=== PATIENT | male | born 1955 | race Caucasian/White ===

== ENCOUNTER 2017-09-03 11:55 | Inpatient (IN) | payer MEDICARE, BC ==
[~2017-09-03] VITALS: Ht 172.7 cm; Wt 81.0 kg
[~2017-09-03 11:55] MED LIST: APIX5TAB3 PO; ASPI-1053 PO; ATOR20TA PO; CHLO25TA2 PO; CYAN1TAB41 PO; DOXA4TAB3 PO; FLO0.4C PO; GARL1000 PO; HCTZ25T PO; HYDR25TA4 PO; LEDI1TAB PO; MILK500C PO; NIFE60TA2 PO; NIFE90TA2 PO; OMEG300C3 PO; POTA2TAB17 PO; TURM500C7 PO; VALS320T16 PO; VITA1TAB20 PO; [UNRECOGNIZED DRUG - CODE] PO; [UNRECOGNIZED DRUG - OTHER] PO
[2017-09-03 12:07] LABS: BASOPHILS % (AUTO) 0.3 % (0-1); EOSINOPHILS # (AUTO) 0.1 X10'3 (0-0.9); EOSINOPHILS % (AUTO) 0.9 % (0-6); HEMATOCRIT 40.4 % (42.0-52.0); HEMOGLOBIN 13.9 g/dl (14.0-17.9); LYMPHOCYTES # (AUTO) 0.8 X10'3 (1.1-4.8); LYMPHOCYTES % (AUTO) 12.1 % (21-51); MEAN CORPUSCULAR HGB CONC 34.4 % (33.0-36.5); MEAN CORPUSCULAR VOLUME 98.9 FL (78-98); MEAN PLATELET VOLUME 9.1 FL (7.4-10.4); MONOCYTES # (AUTO) 0.3 X10'3 (0-0.9); MONOCYTES % (AUTO) 4.5 % (2-12); NEUTROPHILS # (AUTO) 5.8 X10'3 (1.8-7.7); NEUTROPHILS % (AUTO) 82.2 % (42-75); PLATELET COUNT 185 X10'3 (140-440); RED BLOOD COUNT 4.08 X10'6 (4.70-6.10)
[2017-09-03 12:24] LABS: D-DIMER 0.48 MG/L FEU (0-0.50); INR 1.3 INR; PARTIAL THROMBOPLASTIN TIME 26 SECONDS (22-32); PROTHROMBIN TIME 13.3 SECONDS (9.0-12.0)
[2017-09-03 12:28] LABS: ALANINE AMINOTRANSFERASE 30 U/L (12-78); ALBUMIN/GLOBULIN RATIO 0.8 (1.1-1.5); ALKALINE PHOSPHATASE 68 IU/L (46-116); ANION GAP 11 (8-16); ASPARTATE AMINO TRANSFERASE 22 U/L (10-37); BILIRUBIN,TOTAL 0.5 MG/DL (0.1-1.0); BLOOD UREA NITROGEN 20 MG/DL (7-18); BUN/CREATININE RATIO 23.3 (5.4-32.0); CALCIUM 8.5 MG/DL (8.5-10.1); CHLORIDE 106 MMOL/L (99-107); CREATININE 0.86 MG/DL (0.60-1.10); GLUCOSE 137 MG/DL (70-104); SODIUM 146 MMOL/L (135-145); TOTAL CARBON DIOXIDE 29.4 MMOL/L (24-32); TOTAL PROTEIN 6.6 G/DL (6.4-8.2); eGFR 90 ML/MIN
[2017-09-03 12:30] LABS: POTASSIUM 2.6 MMOL/L (3.5-5.1)
[2017-09-03] MEDS ORDERED: DOXA4TAB3 PO (12:30)
[2017-09-03] MEDS ORDERED: POTA20TA10 PO (12:30)
[2017-09-03] MEDS ORDERED: APIX5TAB3 PO (12:30)
[2017-09-03] MEDS ORDERED: NEBI10TA2 PO (12:30)
[2017-09-03] MEDS ORDERED: VALS160T2 PO (12:30)
[2017-09-03] MEDS ORDERED: CHLO25TA2 PO (12:30)
[2017-09-03] MEDS ORDERED: ATOR20TA PO (12:30)
[2017-09-03 12:45] LABS: MAGNESIUM 1.9 MG/DL (1.5-2.4)
[2017-09-03] MEDS ORDERED: potassium Cl 20 mEq SR tablet PO ONE (13:10)
[2017-09-03] MEDS ORDERED: nitroGLYCERIN 0.4mg SUBLingual tab SL PRN (13:35)
[2017-09-03] MEDS ORDERED: morphine 4 MG/ML inj SYRINge IV PRN ×2 (13:35)
[2017-09-03] MEDS ORDERED: acetaminophen 325mg tablet PO PRN ×3 (13:35→13:51)
[2017-09-03] MEDS: potassium 10mEq/100ml NS w/LIDOcaine (10mg/bag) IV SCH ×2 (14:04→15:05)
[2017-09-03 15:19] LABS: CHOL/HDL RATIO 2.3 (0.00-4.99); CHOLESTEROL 121 MG/DL (0-200); HDL CHOLESTEROL 52 MG/DL (35-60); LDL CHOLESTEROL 57 MG/DL (50-100); TRIGLYCERIDES 59 MG/DL (20-135)
[2017-09-03] MEDS ORDERED: potassium Cl 20 mEq SR tablet PO PRN ×3 (17:05→21:00)
[2017-09-03] MEDS ORDERED: potassium Cl 40MEQ/NS 500ml 500 ML IV PRN ×4 (17:05→21:00)
[2017-09-03 17:43] VITALS: BP 132/98
[2017-09-03 18:00] VITALS: BP 155/90
[2017-09-03] MEDS: tamsulosin 0.4mg capsule PO SCH (20:00)
[2017-09-03] MEDS: levetiracetam 250mg tablet PO SCH (20:00)
[2017-09-03] MEDS: doxazosin mesylate 2mg tablet PO SCH (20:10)
[2017-09-03] MEDS: apixaban 5mg tablet PO SCH (20:10)
[2017-09-03] MEDS: potassium Cl 20 mEq SR tablet PO SCH (20:16)
[2017-09-03] MEDS: atorvastatin 20mg tablet PO SCH ×2 (20:16→20:20)
[2017-09-03] MEDS: potassium Cl 20 mEq SR tablet PO PRN (21:33)
[2017-09-03 22:00] VITALS: BP 135/73
[2017-09-04 02:00] VITALS: BP 143/90
[2017-09-04] MEDS: potassium Cl 20 mEq SR tablet PO PRN ×2 (02:11→05:26)
[2017-09-04 05:31] LABS: BASOPHILS % (AUTO) 0.2 % (0-1); EOSINOPHILS # (AUTO) 0.1 X10'3 (0-0.9); EOSINOPHILS % (AUTO) 1.6 % (0-6); HEMATOCRIT 37.7 % (42.0-52.0); HEMOGLOBIN 12.7 g/dl (14.0-17.9); LYMPHOCYTES # (AUTO) 1.6 X10'3 (1.1-4.8); LYMPHOCYTES % (AUTO) 25.1 % (21-51); MEAN CORPUSCULAR HEMOGLOBIN 33.8 PG (27.0-31.0); MEAN CORPUSCULAR HGB CONC 33.8 % (33.0-36.5); MEAN CORPUSCULAR VOLUME 100.1 FL (78-98); MEAN PLATELET VOLUME 9.2 FL (7.4-10.4); MONOCYTES # (AUTO) 0.7 X10'3 (0-0.9); MONOCYTES % (AUTO) 11.1 % (2-12); NEUTROPHILS # (AUTO) 4.1 X10'3 (1.8-7.7); PLATELET COUNT 163 X10'3 (140-440); RED BLOOD COUNT 3.77 X10'6 (4.70-6.10); WHITE BLOOD COUNT 6.6 X10'3 (4.5-11.0)
[2017-09-04 05:47] LABS: ALANINE AMINOTRANSFERASE 28 U/L (12-78); ALBUMIN 2.8 G/DL (3.4-5.0); ALBUMIN/GLOBULIN RATIO 0.8 (1.1-1.5); ALKALINE PHOSPHATASE 63 IU/L (46-116); ANION GAP 6 (8-16); ASPARTATE AMINO TRANSFERASE 20 U/L (10-37); BILIRUBIN,TOTAL 0.4 MG/DL (0.1-1.0); BLOOD UREA NITROGEN 22 MG/DL (7-18); BUN/CREATININE RATIO 21.8 (5.4-32.0); CALCIUM 8.2 MG/DL (8.5-10.1); CHLORIDE 107 MMOL/L (99-107); CREATININE 1.01 MG/DL (0.60-1.10); GLUCOSE 119 MG/DL (70-104); MAGNESIUM 1.9 MG/DL (1.5-2.4); PHOSPHORUS 3.1 MG/DL (2.3-4.5); POTASSIUM 3.2 MMOL/L (3.5-5.1); SODIUM 145 MMOL/L (135-145); TOTAL CARBON DIOXIDE 31.6 MMOL/L (24-32); TOTAL PROTEIN 6.2 G/DL (6.4-8.2); eGFR 74 ML/MIN
[2017-09-04 06:00] VITALS: BP 145/96
[2017-09-04] MEDS: doxazosin mesylate 2mg tablet PO SCH (07:56)
[2017-09-04] MEDS: levetiracetam 250mg tablet PO SCH (07:56)
[2017-09-04] MEDS: apixaban 5mg tablet PO SCH (07:57)
[2017-09-04] MEDS: tamsulosin 0.4mg capsule PO SCH (07:57)
[2017-09-04] MEDS: potassium Cl 20 mEq SR tablet PO SCH ×2 (07:57→13:54)
[2017-09-04] MEDS ORDERED: aspirin 81mg tab.chew PO SCH (08:00)
[2017-09-04] MEDS ORDERED: NIFEdipine XL 30mg tablet PO SCH (08:00)
[2017-09-04] MEDS ORDERED: chlorthalidone 25mg tablet PO SCH (08:00)
[2017-09-04] MEDS ORDERED: non-formulary drug (Garlic 1 CAP) PO SCH (08:00)
[2017-09-04] MEDS ORDERED: SOFOSBUVIR PO SCH (08:00)
[2017-09-04] MEDS ORDERED: LEDIPASVIR PO SCH (08:00)
[2017-09-04] MEDS ORDERED: cyanocobalamin 500mcg tablet PO SCH (08:00)
[2017-09-04] MEDS ORDERED: non-formulary drug (Doxazosin Mesylate 1 TAB) PO SCH (08:00)
[2017-09-04] MEDS ORDERED: vitamin B comp w/Vit. C tab 1 TAB TABLET PO SCH (08:00)
[2017-09-04] MEDS ORDERED: HYDROchlorothiazide 25mg tablet PO SCH (08:00)
[2017-09-04 11:00] VITALS: BP 130/99
[2017-09-04] MEDS ORDERED: LEVE250T PO (13:04)
== END 2017-09-04 14:08 | disposition home or self-care (01) | DRG 312 ==
LOC: ER 11:55 → ED HOLD 13:32 → EDBEDREQ 16:16 → PCU 3S 17:50
PROVIDERS: ADMIT Internal Medicine; ATTEND Internal Medicine
DX: R55 Syncope and collapse (principal); I48.91 Unspecified atrial fibrillation; W18.39XA Other fall on same level, initial encounter; E87.6 Hypokalemia; B19.20 Unspecified viral hepatitis C without hepatic coma; R74.8 Abnormal levels of other serum enzymes; I10 Essential (primary) hypertension; I25.10 Atherosclerotic heart disease of native coronary artery without angina pectoris; F12.90 Cannabis use, unspecified, uncomplicated; F17.210 Nicotine dependence, cigarettes, uncomplicated; Z79.01 Long term (current) use of anticoagulants; Z79.899 Other long term (current) drug therapy; Z79.82 Long term (current) use of aspirin; Z86.73 Personal history of transient ischemic attack (TIA), and cerebral infarction without residual deficits; Z80.9 Family history of malignant neoplasm, unspecified; Y93.89 Activity, other specified; Y92.89 Other specified places as the place of occurrence of the external cause; Y99.8 Other external cause status
CPT/HCPCS: 36415; 70551; 71045; 80053; 80061; 82948; 83735; 83880; 84100; 84132; 84484; 85025; 85379; 85610; 85730; 87502; 87503; 93005; 99285; J3480; J7030

== ENCOUNTER 2017-09-09 10:18 | Inpatient (IN) | payer MEDICARE, BC ==
[~2017-09-09] VITALS: Ht 167.6 cm; Wt 85.9 kg
[~2017-09-09 10:18] MED LIST changes: -HCTZ25T PO; -HYDR25TA4 PO; +LEVE250T PO; +NEBI10TA2 PO; +POTA20TA10 PO; +VALS160T2 PO
[2017-09-09 10:49] LABS: BASOPHILS % (AUTO) 0.4 % (0-1); EOSINOPHILS # (AUTO) 0.1 X10'3 (0-0.9); EOSINOPHILS % (AUTO) 1.6 % (0-6); HEMATOCRIT 40.1 % (42.0-52.0); HEMOGLOBIN 13.8 g/dl (14.0-17.9); LYMPHOCYTES # (AUTO) 0.9 X10'3 (1.1-4.8); LYMPHOCYTES % (AUTO) 14.2 % (21-51); MEAN CORPUSCULAR HEMOGLOBIN 34.2 PG (27.0-31.0); MEAN CORPUSCULAR HGB CONC 34.4 % (33.0-36.5); MEAN CORPUSCULAR VOLUME 99.7 FL (78-98); MEAN PLATELET VOLUME 9.7 FL (7.4-10.4); MONOCYTES # (AUTO) 0.3 X10'3 (0-0.9); MONOCYTES % (AUTO) 5.7 % (2-12); NEUTROPHILS # (AUTO) 4.8 X10'3 (1.8-7.7); NEUTROPHILS % (AUTO) 78.1 % (42-75); PLATELET COUNT 180 X10'3 (140-440); RED BLOOD COUNT 4.03 X10'6 (4.70-6.10); WHITE BLOOD COUNT 6.1 X10'3 (4.5-11.0)
[2017-09-09 11:00] LABS: INR 1.3 INR; PARTIAL THROMBOPLASTIN TIME 26 SECONDS (22-32); PROTHROMBIN TIME 13.4 SECONDS (9.0-12.0)
[2017-09-09 11:04] LABS: ALANINE AMINOTRANSFERASE 33 U/L (12-78); ALBUMIN 3.1 G/DL (3.4-5.0); ALBUMIN/GLOBULIN RATIO 0.8 (1.1-1.5); ALKALINE PHOSPHATASE 75 IU/L (46-116); ANION GAP 6 (8-16); ASPARTATE AMINO TRANSFERASE 22 U/L (10-37); BILIRUBIN,TOTAL 0.6 MG/DL (0.1-1.0); BLOOD UREA NITROGEN 15 MG/DL (7-18); BUN/CREATININE RATIO 19.7 (5.4-32.0); CALCIUM 8.6 MG/DL (8.5-10.1); CHLORIDE 103 MMOL/L (99-107); CREATININE 0.76 MG/DL (0.60-1.10); GLUCOSE 158 MG/DL (70-104); SODIUM 143 MMOL/L (135-145); TOTAL CARBON DIOXIDE 33.7 MMOL/L (24-32); TOTAL PROTEIN 6.9 G/DL (6.4-8.2); eGFR > 90 ML/MIN
[2017-09-09 11:08] LABS: POTASSIUM 2.8 MMOL/L (3.5-5.1)
[2017-09-09] MEDS ORDERED: potassium Cl 20 mEq SR tablet PO STA (11:10)
[2017-09-09] MEDS: potassium 10mEq/100ml NS w/LIDOcaine (10mg/bag) IV SCH ×2 (11:20→12:42)
[2017-09-09] MEDS ORDERED: magnesium 2GM in 50ml NS 50 ML IV PRN (12:25)
[2017-09-09] MEDS ORDERED: ondansetron/PF 4mg/2ml inj IV PRN (12:25)
[2017-09-09] MEDS ORDERED: magnesium hydroxide 30ml (MOM) UD suspension PO PRN (12:25)
[2017-09-09] MEDS ORDERED: acetaminophen 325mg tablet PO PRN (12:25)
[2017-09-09] MEDS ORDERED: potassium Cl 40MEQ/NS 500ml 500 ML IV PRN ×2 (12:25)
[2017-09-09] MEDS ORDERED: mag hydrox/Alum hydrox/simeth 30ml oral suspension PO PRN (12:25)
[2017-09-09] MEDS ORDERED: bisacodyl 10mg suppository rectal RC PRN (12:25)
[2017-09-09] MEDS ORDERED: potassium Cl 20 mEq SR tablet PO PRN (12:25)
[2017-09-09] MEDS ORDERED: magnesium 4gm in 100ml NS 100 ML IV PRN (12:25)
[2017-09-09] MEDS: amiodarone 200mg tablet PO SCH ×2 (13:04→21:52)
[2017-09-09] MEDS: potassium Cl 20 mEq SR tablet PO SCH ×2 (13:04→21:52)
[2017-09-09 13:45] LABS: CLARITY,URINE CLEAR (Clear); COLOR,URINE YELLOW (Yellow); GLUCOSE, URINE NEGATIVE (Neg); KETONES,URINE NEGATIVE (Neg); LEUKOCYTE ESTERASE ,URINE NEGATIVE (Neg); NITRITES, URINE NEGATIVE (Neg); OCCULT BLOOD,URINE TRACE-INTACT (Neg); PH,URINE 7.5 (4.8-8.0); PROTEIN,URINE 100 mg/dl (Neg)
[2017-09-09 13:50] LABS: UA COLLECTION TYPE CLN CATCH MIDSTREAM
[2017-09-09 13:51] LABS: BACTERIA,URINE NONE SEEN /HPF (Neg); MUCUS STRANDS NONE SEEN /LPF (Neg); RBC,URINE 0-2 /HPF (0-2); SQUAMOUS EPITHELIAL CELL,UR FEW /LPF (FEW); WBC,URINE NONE SEEN /HPF (0-4)
[2017-09-09 17:19] LABS: ALBUMIN 3.1 G/DL (3.4-5.0); ANION GAP 7 (8-16); BLOOD UREA NITROGEN 17 MG/DL (7-18); BUN/CREATININE RATIO 19.5 (5.4-32.0); CALCIUM 8.5 MG/DL (8.5-10.1); CHLORIDE 105 MMOL/L (99-107); CREATININE 0.87 MG/DL (0.60-1.10); GLUCOSE 133 MG/DL (70-104); POTASSIUM 3.3 MMOL/L (3.5-5.1); SODIUM 143 MMOL/L (135-145); TOTAL CARBON DIOXIDE 31.3 MMOL/L (24-32); eGFR 88 ML/MIN
[2017-09-09 19:30] VITALS: BP 156/94
[2017-09-09] MEDS: furosemide 20 MG/2 ML vial IV SCH (21:51)
[2017-09-09] MEDS: atorvastatin 20mg tablet PO SCH (21:52)
[2017-09-09] MEDS: tamsulosin 0.4mg capsule PO SCH (21:52)
[2017-09-09] MEDS: docusate sod 100mg capsule PO SCH (21:53)
[2017-09-09 22:00] VITALS: BP_SYST 137; BP_SYST 145; BP_SYST 147; BP_DIAS 95; BP_DIAS 98
[2017-09-09 23:34] LABS: POTASSIUM 3.1 MMOL/L (3.5-5.1)
[2017-09-10] VITALS (16 sets, daily range): BP systolic 115–151; BP diastolic 74–101
[2017-09-10] MEDS: potassium Cl 20 mEq SR tablet PO PRN ×2 (04:01→14:13)
[2017-09-10 06:11] LABS: BASOPHILS % (AUTO) 0.4 % (0-1); EOSINOPHILS # (AUTO) 0.1 X10'3 (0-0.9); HEMATOCRIT 39.5 % (42.0-52.0); HEMOGLOBIN 13.2 g/dl (14.0-17.9); LYMPHOCYTES # (AUTO) 1.6 X10'3 (1.1-4.8); LYMPHOCYTES % (AUTO) 25.4 % (21-51); MEAN CORPUSCULAR HEMOGLOBIN 33.8 PG (27.0-31.0); MEAN CORPUSCULAR HGB CONC 33.4 % (33.0-36.5); MEAN CORPUSCULAR VOLUME 101.4 FL (78-98); MEAN PLATELET VOLUME 10.1 FL (7.4-10.4); MONOCYTES # (AUTO) 0.7 X10'3 (0-0.9); MONOCYTES % (AUTO) 11.5 % (2-12); NEUTROPHILS # (AUTO) 3.9 X10'3 (1.8-7.7); NEUTROPHILS % (AUTO) 60.7 % (42-75); PLATELET COUNT 164 X10'3 (140-440); RED BLOOD COUNT 3.89 X10'6 (4.70-6.10); RED CELL DISTRIBUTION WIDTH 15.9 % (11.5-14.5); WHITE BLOOD COUNT 6.4 X10'3 (4.5-11.0)
[2017-09-10 06:59] LABS: ALANINE AMINOTRANSFERASE 29 U/L (12-78); ALBUMIN 2.9 G/DL (3.4-5.0); ALBUMIN/GLOBULIN RATIO 0.9 (1.1-1.5); ALKALINE PHOSPHATASE 65 IU/L (46-116); ANION GAP 7 (8-16); ASPARTATE AMINO TRANSFERASE 19 U/L (10-37); BILIRUBIN,TOTAL 0.6 MG/DL (0.1-1.0); BLOOD UREA NITROGEN 19 MG/DL (7-18); BUN/CREATININE RATIO 21.3 (5.4-32.0); CALCIUM 8.5 MG/DL (8.5-10.1); CHLORIDE 105 MMOL/L (99-107); CREATININE 0.89 MG/DL (0.60-1.10); GLUCOSE 102 MG/DL (70-104); MAGNESIUM 1.9 MG/DL (1.5-2.4); POTASSIUM 3.2 MMOL/L (3.5-5.1); SODIUM 145 MMOL/L (135-145); TOTAL CARBON DIOXIDE 32.6 MMOL/L (24-32); TOTAL PROTEIN 6.3 G/DL (6.4-8.2); eGFR 86 ML/MIN
[2017-09-10] MEDS: doxazosin mesylate 2mg tablet PO SCH (07:41)
[2017-09-10] MEDS: aspirin 81mg tab.chew PO SCH (07:42)
[2017-09-10] MEDS: tamsulosin 0.4mg capsule PO SCH ×2 (07:42→20:12)
[2017-09-10] MEDS: docusate sod 100mg capsule PO SCH ×2 (07:42→20:13)
[2017-09-10] MEDS: magnesium Cl slow-release 64mg tablet PO PRN ×2 (07:42→20:12)
[2017-09-10] MEDS: potassium Cl 20 mEq SR tablet PO SCH ×3 (07:42→20:12)
[2017-09-10] MEDS: enoxaparin 40mg/0.4ml syringe SUBCUT SCH (07:43)
[2017-09-10] MEDS: amiodarone 200mg tablet PO SCH (07:43)
[2017-09-10] MEDS: cyanocobalamin 500mcg tablet PO SCH (07:43)
[2017-09-10] MEDS: OMEGA-3/DHA/EPA/FISH OIL 1 EACH CAPSULE.DR PO SCH (07:44)
[2017-09-10] MEDS: furosemide 20 MG/2 ML vial IV SCH ×2 (07:44→20:12)
[2017-09-10] MEDS: K and/or MAG REPLACEMENT MC SCH (08:00)
[2017-09-10] MEDS ORDERED: amiodarone 150mg/dext, iso-os 100 ML IV ONE (08:10)
[2017-09-10] MEDS: amiodarone/D5 360MG/200ML BAG 200 ML IV PRN ×2 (11:14→17:20)
[2017-09-10 13:08] LABS: MAGNESIUM 1.9 MG/DL (1.5-2.4); POTASSIUM 3.3 MMOL/L (3.5-5.1)
[2017-09-10] MEDS ORDERED: magnesium 1 gm/2ml inj. 1 GM in normal saline 50ml IV soln 48 ML IV ONE (14:20)
[2017-09-10] MEDS ORDERED: Potassium Cl inj 20 MEQ in normal saline 250ml IV soln 240 ML IV ONE (14:25)
[2017-09-10] MEDS: atorvastatin 20mg tablet PO SCH (20:12)
[2017-09-11] VITALS (21 sets, daily range): BP systolic 109–174; BP diastolic 47–107
[2017-09-11] MEDS: enoxaparin 40mg/0.4ml syringe SUBCUT SCH (06:43)
[2017-09-11 07:19] LABS: ALANINE AMINOTRANSFERASE 31 U/L (12-78); ALBUMIN 3.1 G/DL (3.4-5.0); ALBUMIN/GLOBULIN RATIO 0.9 (1.1-1.5); ALKALINE PHOSPHATASE 69 IU/L (46-116); ANION GAP 11 (8-16); ASPARTATE AMINO TRANSFERASE 18 U/L (10-37); BILIRUBIN,TOTAL 0.4 MG/DL (0.1-1.0); BLOOD UREA NITROGEN 25 MG/DL (7-18); BUN/CREATININE RATIO 25.8 (5.4-32.0); CALCIUM 8.6 MG/DL (8.5-10.1); CHLORIDE 104 MMOL/L (99-107); CREATININE 0.97 MG/DL (0.60-1.10); GLUCOSE 112 MG/DL (70-104); MAGNESIUM 2.1 MG/DL (1.5-2.4); POTASSIUM 3.7 MMOL/L (3.5-5.1); SODIUM 144 MMOL/L (135-145); TOTAL PROTEIN 6.7 G/DL (6.4-8.2); eGFR 78 ML/MIN
[2017-09-11] MEDS: OMEGA-3/DHA/EPA/FISH OIL 1 EACH CAPSULE.DR PO SCH (07:34)
[2017-09-11] MEDS: doxazosin mesylate 2mg tablet PO SCH (07:34)
[2017-09-11] MEDS: tamsulosin 0.4mg capsule PO SCH ×2 (07:36→20:10)
[2017-09-11] MEDS: potassium Cl 20 mEq SR tablet PO SCH ×3 (07:36→20:09)
[2017-09-11] MEDS: cyanocobalamin 500mcg tablet PO SCH (07:37)
[2017-09-11] MEDS: docusate sod 100mg capsule PO SCH ×2 (07:37→20:10)
[2017-09-11] MEDS: aspirin 81mg tab.chew PO SCH (07:37)
[2017-09-11] MEDS: furosemide 20 MG/2 ML vial IV SCH ×2 (07:38→20:09)
[2017-09-11] MEDS: K and/or MAG REPLACEMENT MC SCH (07:48)
[2017-09-11] MEDS: amiodarone/D5 360MG/200ML BAG 200 ML IV PRN ×2 (07:53→20:12)
[2017-09-11] MEDS ORDERED: iohexol 350MG/ML 100ml bottle IV ONE (08:01)
[2017-09-11] MEDS ORDERED: LIDOcaine 1%/PF (10mg/ml) 5ml vial ONE (08:01)
[2017-09-11] MEDS ORDERED: normal saline 1000ml 1,000 ML IV SCH (09:16)
[2017-09-11] MEDS ORDERED: nitroGLYCERIN 0.4mg SUBLingual tab SL PRN (09:20)
[2017-09-11] MEDS ORDERED: proCHLORperazine 10 MG/2 ml inj IV PRN (09:20)
[2017-09-11] MEDS ORDERED: OXAZEpam 15mg capsule PO PRN (09:20)
[2017-09-11] MEDS: HYDROcodone/acetaminophen 5mg/325mg tablet PO PRN (15:35)
[2017-09-11] MEDS: atorvastatin 20mg tablet PO SCH (20:10)
[2017-09-11] MEDS: HYDROcodone/acetaminophen 10/325mg tab PO PRN (20:16)
[2017-09-12] VITALS (14 sets, daily range): BP systolic 123–186; BP diastolic 56–112
[2017-09-12 05:43] LABS: ALANINE AMINOTRANSFERASE 25 U/L (12-78); ALBUMIN/GLOBULIN RATIO 0.9 (1.1-1.5); ALKALINE PHOSPHATASE 65 IU/L (46-116); ANION GAP 7 (8-16); ASPARTATE AMINO TRANSFERASE 20 U/L (10-37); BILIRUBIN,TOTAL 0.5 MG/DL (0.1-1.0); BLOOD UREA NITROGEN 25 MG/DL (7-18); CALCIUM 8.2 MG/DL (8.5-10.1); CHLORIDE 106 MMOL/L (99-107); CREATININE 0.96 MG/DL (0.60-1.10); GLUCOSE 109 MG/DL (70-104); MAGNESIUM 1.9 MG/DL (1.5-2.4); POTASSIUM 3.8 MMOL/L (3.5-5.1); SODIUM 146 MMOL/L (135-145); TOTAL CARBON DIOXIDE 32.7 MMOL/L (24-32); TOTAL PROTEIN 6.5 G/DL (6.4-8.2); eGFR 79 ML/MIN
[2017-09-12] MEDS ORDERED: LIDOcaine 1.5% w/epinephrine 1:200,000 5ml ampul ONE ×2 (06:22→06:30)
[2017-09-12] MEDS ORDERED: ceFAZolin 1000mg inj ONE (06:22)
[2017-09-12] MEDS ORDERED: fentaNYL/PF 50MCG/1 ML 2ML syringe ONE (06:36)
[2017-09-12] MEDS: potassium Cl 20 mEq SR tablet PO SCH ×3 (07:32→21:32)
[2017-09-12] MEDS: cyanocobalamin 500mcg tablet PO SCH (07:32)
[2017-09-12] MEDS: aspirin 81mg tab.chew PO SCH (07:32)
[2017-09-12] MEDS: doxazosin mesylate 2mg tablet PO SCH (07:32)
[2017-09-12] MEDS: tamsulosin 0.4mg capsule PO SCH ×2 (07:33→21:30)
[2017-09-12] MEDS: HYDROcodone/acetaminophen 10/325mg tab PO PRN ×4 (07:33→23:20)
[2017-09-12] MEDS: furosemide 20 MG/2 ML vial IV SCH ×2 (07:34→21:33)
[2017-09-12] MEDS: docusate sod 100mg capsule PO SCH ×2 (07:34→21:38)
[2017-09-12] MEDS: OMEGA-3/DHA/EPA/FISH OIL 1 EACH CAPSULE.DR PO SCH (07:47)
[2017-09-12] MEDS: amiodarone 200mg tablet PO SCH ×2 (07:47→21:29)
[2017-09-12] MEDS: carvedilol 6.25mg tablet PO SCH ×2 (07:47→21:31)
[2017-09-12] MEDS: spironolactone 25 MG tablet PO SCH (07:47)
[2017-09-12] MEDS: K and/or MAG REPLACEMENT MC SCH (08:00)
[2017-09-12] MEDS ORDERED: LORazepam 1 MG tablet PO PRN (09:10)
[2017-09-12] MEDS: normal saline 1000ml 400 ML IV SCH ×3 (09:15→15:57)
[2017-09-12] MEDS: ceFAZolin 1GM/D5W- ADD-VANTAGE 50 ML IV SCH ×2 (15:52→23:20)
[2017-09-12] MEDS: HYDROcodone/acetaminophen 5mg/325mg tablet PO PRN (15:55)
[2017-09-12] MEDS: atorvastatin 20mg tablet PO SCH (21:30)
[2017-09-13 03:00] VITALS: BP 155/93
[2017-09-13] MEDS: HYDROcodone/acetaminophen 10/325mg tab PO PRN ×2 (04:59→10:05)
[2017-09-13 05:48] LABS: ALANINE AMINOTRANSFERASE 24 U/L (12-78); ALBUMIN 3.2 G/DL (3.4-5.0); ALBUMIN/GLOBULIN RATIO 0.9 (1.1-1.5); ALKALINE PHOSPHATASE 75 IU/L (46-116); ANION GAP 7 (8-16); ASPARTATE AMINO TRANSFERASE 21 U/L (10-37); BILIRUBIN,TOTAL 0.8 MG/DL (0.1-1.0); BLOOD UREA NITROGEN 25 MG/DL (7-18); CALCIUM 8.6 MG/DL (8.5-10.1); CHLORIDE 104 MMOL/L (99-107); CREATININE 0.96 MG/DL (0.60-1.10); GLUCOSE 115 MG/DL (70-104); MAGNESIUM 1.9 MG/DL (1.5-2.4); POTASSIUM 4.2 MMOL/L (3.5-5.1); SODIUM 141 MMOL/L (135-145); TOTAL CARBON DIOXIDE 29.6 MMOL/L (24-32); TOTAL PROTEIN 6.9 G/DL (6.4-8.2); eGFR 79 ML/MIN
[2017-09-13 06:00] VITALS: BP 155/102
[2017-09-13] MEDS ORDERED: CEPH500C5 PO (07:00)
[2017-09-13] MEDS: enoxaparin 40mg/0.4ml syringe SUBCUT SCH (08:00)
[2017-09-13] MEDS: K and/or MAG REPLACEMENT MC SCH (08:00)
[2017-09-13] MEDS ORDERED: carVEDilol 12.5mg tablet PO SCH (08:00)
[2017-09-13] MEDS: amiodarone 200mg tablet PO SCH (08:11)
[2017-09-13] MEDS: doxazosin mesylate 2mg tablet PO SCH (08:11)
[2017-09-13] MEDS: spironolactone 25 MG tablet PO SCH (08:11)
[2017-09-13] MEDS: potassium Cl 20 mEq SR tablet PO SCH (08:11)
[2017-09-13] MEDS: tamsulosin 0.4mg capsule PO SCH (08:12)
[2017-09-13] MEDS: cyanocobalamin 500mcg tablet PO SCH (08:12)
[2017-09-13] MEDS: aspirin 81mg tab.chew PO SCH (08:12)
[2017-09-13] MEDS: furosemide 20 MG/2 ML vial IV SCH (08:13)
[2017-09-13] MEDS: OMEGA-3/DHA/EPA/FISH OIL 1 EACH CAPSULE.DR PO SCH (08:13)
[2017-09-13] MEDS: ceFAZolin 1GM/D5W- ADD-VANTAGE 50 ML IV SCH (08:16)
[2017-09-13] MEDS: docusate sod 100mg capsule PO SCH (08:20)
[2017-09-13 11:00] VITALS: BP 139/88
[2017-09-13] MEDS ORDERED: CARV-50 PO (12:50)
[2017-09-13] MEDS ORDERED: SPIR25TA PO (12:50)
[2017-09-13] MEDS ORDERED: AMIO200T57 PO (12:50)
[2017-09-13] MEDS ORDERED: POTA20TA10 PO (12:50)
[2017-09-13] MEDS ORDERED: FURO-149 PO (12:50)
[2017-09-13] MEDS ORDERED: APIX5TAB3 PO (12:54)
== END 2017-09-13 13:56 | disposition home or self-care (01) | DRG 224 ==
LOC: ER 10:20 → ED HOLD 11:49 → EDBEDREQ 18:24 → PCU 3S 19:20
PROVIDERS: ADMIT Internal Medicine; ATTEND Emergency Medicine
PROC: 4A00X4Z Measurement of Central Nervous Electrical Activity, External Approach (ICD-10-PCS; 2017-09-09)
PROC: B2111ZZ Fluoroscopy of Multiple Coronary Arteries using Low Osmolar Contrast (ICD-10-PCS; 2017-09-11)
PROC: 0JH608Z Insertion of Defibrillator Generator into Chest Subcutaneous Tissue and Fascia, Open Approach (ICD-10-PCS; principal; 2017-09-12)
PROC: 02HK3KZ Insertion of Defibrillator Lead into Right Ventricle, Percutaneous Approach (ICD-10-PCS; 2017-09-12)
DX: I47.2 Ventricular tachycardia (principal); I50.23 Acute on chronic systolic (congestive) heart failure; I42.9 Cardiomyopathy, unspecified; I48.91 Unspecified atrial fibrillation; E87.6 Hypokalemia; I11.0 Hypertensive heart disease with heart failure; E78.5 Hyperlipidemia, unspecified; I25.10 Atherosclerotic heart disease of native coronary artery without angina pectoris; F12.90 Cannabis use, unspecified, uncomplicated; F17.290 Nicotine dependence, other tobacco product, uncomplicated; I25.2 Old myocardial infarction; Z79.82 Long term (current) use of aspirin; Z79.01 Long term (current) use of anticoagulants; Z79.899 Other long term (current) drug therapy; Z85.46 Personal history of malignant neoplasm of prostate; Z86.73 Personal history of transient ischemic attack (TIA), and cerebral infarction without residual deficits
CPT/HCPCS: 33249; 36415; 70450; 71045; 80048; 80053; 81001; 83735; 83880; 84132; 84484; 85025; 85610; 85730; 87070; 93005; 93306; 93308; 93454; 93880; 95816; 97116; 97161; 97530; 99152; 99153; 99285; A4565; A4620; A6449; C1722; C1769; C1777; J0282; J0690; J1644; J1650; J1940; J2001; J3010; J3475; J3480; J3490; J7030; Q9967